=== PATIENT | male | born 1985 | race Caucasian/White ===

== ENCOUNTER 2017-01-19 16:30 | Emergency (ER) | payer OTHER ==
[~2017-01-19] VITALS: Ht 175.3 cm; Wt 86.2 kg
[2017-01-19 16:43] VITALS: BP 153/91
--- NOTE | 2017-01-19 16:56 | ED.ADGEN ---
Past History Past Medical History: No Pertinent History Past Surgical History: No Surgical History Adult General Chief Complaint Chief Complaint Back pain HPI HPI Patient is a 31 year old male who presents with lumbar back pain. He states prior to 3 days ago he used to exercise increased (box or something pop being started having pain. He states he rested and over the last 3 days the pain got substantially better. He denies any saddle anesthesia, urinary or bowel bladder dysfunction or leg weakness. He states today he was bending over to do some cooking when all of a sudden his back started hurting again. He states it hurts in the lumbar area paraspinally. He states it's hard for him to walk in to listen to her. This makes the pain worse. He has not taken anything for pain or discomfort as of yet. He denies any history of surgeries, he has no allergies medications and not on any medications. He denies any fevers or chills. States the pain is across his low lumbar back and does not radiate out of his back. Review of Systems Review of Systems Constitutional: Denies fever or chills [] Eyes: Denies change in visual acuity, redness, or eye pain [] HENT: Denies nasal congestion or sore throat [] Respiratory: Denies cough or shortness of breath [] Cardiovascular: No additional information not addressed in HPI [] GI: Denies abdominal pain, nausea, vomiting, bloody stools or diarrhea [] : Denies dysuria or hematuria [] Musculoskeletal: Positive for lumbar back pain. Integument: Denies rash or skin lesions [] Neurologic: Denies headache, focal weakness or sensory changes [] Endocrine: Denies polyuria or polydipsia [] Current Medications Current Medications Current Medications Medications (Trade) Dose Ordered Sig/[facility] Start Time Stop Time Status Last Admin Dose Admin Cyclobenzaprine HCl (Flexeril) 10 mg 1X ONCE 01/19/17 17:55 01/19/17 17:56 DC 01/19/17 17:32 10 MG Ibuprofen (Motrin) 600 mg 1X ONCE 01/19/17 17:55 01/19/17 17:56 DC 01/19/17 17:32 600 MG Allergies Allergies Allergies Coded Allergies Type Severity Reaction Last Updated Verified No Known Drug Allergies 01/19/17 No Physical Exam Physical Exam Constitutional: Well developed, well nourished, no acute distress, non-toxic appearance. [] HENT: Normocephalic, atraumatic, bilateral external ears normal, oropharynx moist, no oral exudates, nose normal. [] Eyes: PERRLA, EOMI, conjunctiva normal, no discharge. [] Neck: Normal range of motion, no tenderness, supple, no stridor. [] Cardiovascular:Heart rate regular rhythm, no murmur [] Lungs & Thorax: Bilateral breath sounds clear to auscultation [] Abdomen: Bowel sounds normal, soft, no tenderness, no masses, no pulsatile masses. [] Skin: Warm, dry, no erythema, no rash. [] Back: Tender to palpation across the lumbar back midline and paraspinally, no step-offs noted, negative straight leg raise bilaterally, strength 5 out of 5 bilateral lower extremities able to flex and extend fully, no CVA tenderness. [ ] Extremities: No tenderness, no cyanosis, no clubbing, ROM intact, no edema. [] Neurologic: Alert and oriented X 3, normal motor function, normal sensory function, no focal deficits noted. [] Psychologic: Affect normal, judgement normal, mood normal. [] Current Patient Data Vital Signs Vital Signs Date Time Temp Pulse Resp B/P (MAP) Pulse Ox O2 Delivery O2 Flow Rate FiO2 01/19/17 16:43 98.6 97 16 97 Room Air EKG EKG [] Radiology/Procedures Radiology/Procedures Lumbar spine series did not show any bony abnormality's, fractures, normal alignment is seen, no foreign bodies, as interpreted by me. Course & Med Decision Making Course & Med Decision Making Pertinent Labs and Imaging studies reviewed. (See chart for details) His physical exam is not concerning. We'll treat with muscle relaxants and ibuprofen. He is instructed that his pain should improve over the next several days and it doesn't, he develops weakness in his legs or numbness then he needs an MRI or additional imaging studies. He is agreeable plan being discharged at this time with a prescription for Flexeril 10 mg every 8 hours when necessary muscle spasm #30. Final Impression Final Impression Back pain Problems: Dragon Disclaimer Dragon Disclaimer This electronic medical record was generated, in whole or in part, using a voice recognition dictation system. АЛЕКСАНДР MAGDALENO MD Jan 19, 2017 16:56
[2017-01-19] MEDS ORDERED: IBUPROFEN 600 MG TABLET. PO ONE (17:55)
[2017-01-19] MEDS ORDERED: CYCLOBENZAPRINE 10 MG TABLET. PO ONE (17:55)
--- NOTE | 2017-01-20 08:14 | RAD ---
Lumbar spine 2 views. History: Back pain, lower back pain, twisted and felt pop in back 2 views were taken of the lumbar spine. The spine is in normal alignment. There is no acute fracture. Impression: 1. Negative lumbar spine.
== END 2017-01-19 18:09 | disposition home or self-care (01) ==
LOC: ER 16:30
DX: M54.5 Low back pain (principal)
CPT/HCPCS: 72100; 99284